=== PATIENT | female | born 1975 ===

== ENCOUNTER 2023-11-09 00:12 | Observation (INO) | payer MEDICARE, SELFPAY ==
[2023-11-08] VITALS (18 sets, daily range): BP systolic 107–155; BP diastolic 54–82; BMI 22.7
[2023-11-08 19:37] LABS: % Basophils 0.4 % (0-2); % Eosinophils 0.4 % (0-6); % Lymphocytes 20.2 % (20.5-51.1); % Monocytes 8.1 % (1.7-9.3); % Neutrophils 69.9 % (42.2-75.2); Absolute Eosinophils 0.1 10^3/uL (0-0.7); Absolute Immature Granulocytes 0.1 10^3/uL (0-0.05); Absolute Lymphocytes 2.3 10^3/uL (1.2-3.4); Absolute Monocytes 0.9 10^3/uL (0.1-0.6); Absolute Neutrophils 7.9 10^3/uL (1.4-6.5); Hematocrit 36.8 % (37.0-47.0); Hemoglobin 11.7 g/dL (12.0-16.0); Mean Corp Hgb Conc. 31.8 g/dL (33.0-37.0); Mean Corpuscular Hgb 22.8 pg (27.0-31.0); Mean Corpuscular Volume 71.6 fL (81.0-99.0); Mean Platelet Volume 8.7 fL (7.4-10.4); Nucleated Red Blood Cells % 0 %; Platelet Count 535 10^3/uL (130-400); Red Blood Cell Count 5.14 10^6/uL (4.20-5.40); Red Cell Dist. Width 18.4 % (11.5-14.5); White Blood Cell Count 11.3 10^3/uL (4.8-10.8)
[2023-11-08 19:48] LABS: INR 1.12; PT 14.2 Sec (11.4-14.6)
[2023-11-08 19:49] LABS: ALT (SGPT) 37 U/L (0-35); APTT 25.9 Sec (23.4-35.0); AST (SGOT) 30 U/L (14-36); Albumin 4.2 g/dl (3.5-5.0); Alkaline Phosphatase 42 U/L (38-126); Blood Urea Nitrogen 28 mg/dl (7-17); Carbon Dioxide 26 mmol/L (22-30); Chloride 102 mmol/L (98-107); Glucose 99 mg/dl (70-99); Potassium 4.1 mmol/L (3.5-5.1); Sodium 139 mmol/L (135-145); Total Bilirubin 0.3 mg/dl (0.2-1.3); Total Protein 6.7 g/dl (6.3-8.2); eGFR > 60.00
[2023-11-08] MEDS: NITROSTAT (SUBLINGUAL) 0.4 MG SL (19:52)
[2023-11-08] MEDS: LOW STRENGTH ASPIRIN 324 MG PO (19:52)
[2023-11-08 20:02] LABS: Troponin I < 0.012 ng/ml
--- NOTE | 2023-11-08 20:19 | ED.GENMED ---
History of Present Illness
General
Chief Complaint: Chest Pain
Time Seen by Provider: 11/08/23 19:10
History of Present Illness
History of Present Illness:
48-year-old female without significant past medical history presenting to the emergency department for left-sided chest pain. Patient reports 2 hours prior to arrival she was cooking dinner and had acute onset of left-sided chest tightness. Pain
has been worsening since arrival to the hospital. Denies any known cardiac history. Denies any difficulty breathing. Denies any family history of cardiac disease. Denies abdominal pain or GI symptoms. Notes some mild nausea. Denies any tobacco
use history. Denies additional acute medical complaints.
Past History
Past History
ED Past Medical History: Seizures
ED Past Surgical History: Brain
Social History
Tobacco: Non-smoker
Alcohol: None
Drug: None
Living: with family
Phy Exam
Physical Exam
Physical Exam:
General: Well-appearing, no clinical signs of dehydration, nontoxic and in no acute distress
HEENT: protecting airway
Neck: appears supple
CV: Normal heart rate, regular rhythm, no evidence of cyanosis
Resp: No accessory muscle use, no increased work of breathing, lungs clear to auscultation bilaterally
Abd: Soft and non-distended, no tenderness to palpation
Extremities: No deformities, no swelling, no erythema
Neuro: alert, no focal neurologic deficit
: deferred
Rectal: deferred
Psych: Normal affect
Skin: Intact
Scores
Heart Score for Chest Pain Patients
STEMI patient?: No
History: Moderately Suspicious
ECG: Significant ST-Depression
Age: >45 - <65 years
Risk Factors: No Risk Factors
Troponin: </= Normal Limit
Heart Score for Chest Pain Patients: 4
Heart Score Risk: 20.3% MACE over next 6 weeks
Course
Orders/Labs/Results
Orders:
Orders
11/08/23 18:52
EKG [Electrocardiogram (*1)] Urgent
Reason for Study: Chest Pain
EKG- Treatment ONCE
11/08/23 19:18
Aspirin Chewable [Low Strength Aspirin] 324 mg PO NOW STA
Nitroglycerin Sublingual [Nitrostat (Sublingual)] 0.4 mg SL NOW STA
11/08/23 19:19
CR Chest - 2 Views Urgent
Comment:
Reason For Exam: chest pain
11/08/23 19:29
Complete Blood Count/With Diff Urgent
Comprehensive Metabolic Panel Urgent
HCG, Serum Qualitative Screen Urgent
Comment: ADD ON
NT-proBNP Urgent
PTT Urgent
Prothrombin Time Urgent
Troponin I Q3H
11/08/23 21:37
CT Chest Pe Study Urgent
Comment:
Reason For Exam: chest pain
11/08/23 22:21
Add On- LAB Stat
Tests Added?: hcg qual
11/08/23 22:33
Troponin I Q3H
11/08/23 22:37
CARDIOLOGY CONSULT Routine
Consulting Provider: Tanner Wilson
Was physician already notified: Yes
Reason for consult: lbbb, chest pain
11/08/23 23:52
Urine Culture Reflexed from UA [Urinalysis Reflex To Culture] Routine
11/09/23 00:01
Admit/Transfer Patient As Directed
Co-Sign Provider:
Level of Care: Observation services
Assign to:: Telemetry
Physician / Group: tabatha quarles
Diagnosis: LBBB, Bradycardia chest pain
Reason for Telemetry: Arrhythmia
Date to Stop Telemetry: 11/12/23
Time to Stop Telemetry: 11:00
Code Status As Directed
Resuscitation Status: Full Code
11/09/23 00:04
PRN Pain Medication Management As Directed
May give lesser potent ordered pain med per pt: Yes
preference::
Protocol:: Medication orders for pain may be administered in a
manner that supports deferring to patient preference
when the pt is:
- Requesting an ordered lesser potent pain medication.
Least to most potent pain medications are defined
as: acetaminophen < NSAID < tramadol < opioids
(morphine, oxycodone, hydromorphone).
- Requesting a lesser dose of the same medication IF
ORDERED.
- Requesting a less intrusive route of administration
if both routes are prescribed by the provider (PO <
IV).
11/09/23 00:55
Acetaminophen [Tylenol] 650 mg PO Q4HPRN PRN
Nurtec ODT 75 mg PO ONCE PRN
Zofran ODT 8 mg PO Q8H PRN
11/09/23 00:55
Activity As Directed
Activity Level: As Tolerated
Vital Signs As Directed
Frequency: Per unit guidelines
DX Deep Vein Thrombosis Video Routine
11/09/23 05:00
Troponin I Routine
11/09/23 06:00
EKG [Electrocardiogram (*1)] IN AM
Reason for Study: Chest Pain
Other Reason for Exam: bradycardia
Cardiovascular Evaluation IN AM
Complete Blood Count/With Diff IN AM
Comprehensive Metabolic Panel IN AM
11/09/23 08:00
Aspir-81 81 mg PO DAILY
Keflex 500 mg PO TID
Klonopin 0.5 mg PO TID
Vyvanse 50 mg PO DAILY
atorvastatin 10 mg PO DAILY
11/09/23 Dinner
Regular
At Your Request: Limited Participation
11/09/23 18:00
Enoxaparin Sodium [Lovenox] 40 mg SC QPM
11/09/23 22:00
Flexeril 5 mg PO HS
eszopiclone [Lunesta] 3 mg PO HS
11/12/23 11:00
DC Protocol for Telemetry ONCE
Abnormal Lab Results
11/08/23
19:29
WBC 11.3 H 10^3/uL
(4.8-10.8)
Hgb 11.7 L g/dL
(12.0-16.0)
Hct 36.8 L %
(37.0-47.0)
MCV 71.6 L fL
(81.0-99.0)
MCH 22.8 L pg
(27.0-31.0)
MCHC 31.8 L g/dL
(33.0-37.0)
RDW 18.4 H %
(11.5-14.5)
Plt Count 535 H 10^3/uL
(130-400)
Abs Immat Gran (auto) 0.1 H 10^3/uL
(0-0.05)
Absolute Neuts (auto) 7.9 H 10^3/uL
(1.4-6.5)
Absolute Monos (auto) 0.9 H 10^3/uL
(0.1-0.6)
Immature Gran % 1.0 H %
(0-0.5)
Lymphocytes % 20.2 L %
(20.5-51.1)
BUN 28 H mg/dl
(7-17)
ALT 37 H U/L
(0-35)
11/08/23 19:29
11/08/23 19:29
Vital Signs
Initial and Last Documented VS:
Initial Vital Signs
Temp Pulse Resp BP Pulse Ox
97.7 F 56 16 155/82 98
11/08/23 18:59 11/08/23 18:59 11/08/23 18:59 11/08/23 18:59 11/08/23 18:59
Last Documented Vital Signs
Temp Pulse Resp BP Pulse Ox
97.7 F 54 16 138/70 99
11/09/23 01:18 11/09/23 01:18 11/09/23 01:18 11/09/23 01:18 11/09/23 01:18
MDM/Problems Addressed
MDM/Problems Addressed:
48-year-old female with no significant past medical history presenting for acute onset of chest pain. Vital signs on arrival significant for mild hypertension.
Patient had EKG upon arrival, abnormal with left bundle branch block with ST elevation, no reciprocal changes. No prior for comparison. Not meeting STEMI criteria, however abnormal and concerning. Patient in no acute distress. Overall
unremarkable examination, hemodynamically stable. Will consult with cardiology and obtain laboratory analysis including troponin.
19:30 - In discussion with Dr. Wilson, agrees abnormal, however no STEMI criteria. Pending troponin.
20:30 - Troponin with normal limits. Plan for admission for continued cardiac monitoring and troponin trending
*EKG
Interpreted by ED Provider?: Yes
EKG Intrepretation Date: 11/08/23
EKG Intrepretation Time: 20:25
Interpretation: abnormal
Comparison EKG: no comparison EKG present
Heart Rate: 57
Rate: bradycardiac
Rhythm: sinus
[place]: normal axis
Interval: normal interval
QRS Pattern: left bundle branch block
Ischemia: ST elevation
*Critical Care Note
Total Time (30-74mins, 75-104mins- exclusive of procedures): Not Applicable
ED Attending Note
-
Portions of this chart may have been created with voice recognition software.� Occasional wrong word or��sound alike� substitutions may have occurred due to the inherent limitations of voice recognition software.
Discharge Plan
Departure
Patient Disposition: Admit
Date of Disposition: 11/08/23
Time of Disposition: 20:28
Presentation/result/management discussed w/ accepting MD/DO: cardiology
Condition: Fair
Discharge Problem:
Chest pain, LBBB (left bundle branch block)
Interventions
Interventions:
*Risk Screen - Suicide Last Done: 11/08/23 18:59
*General Assessment Last Done: 11/09/23 01:00
*Neglect/Abuse Screening Last Done: 11/08/23 18:59
ED- Fall Risk Assessment Last Done: 11/08/23 19:57
*ED COVID-19 Vaccine History Last Done: 11/09/23 01:00
*Nursing Disposition Last Done: 11/09/23 01:00
ED- Cardiac Assessment Last Done: 11/08/23 19:57
Discharge Date and Time
Discharge Date/Time: 11/09/23 01:01
--- NOTE | 2023-11-08 21:05 | HPS.HSE ---
Family Physician
-
Family Physician: Kitty Aguilar
Chief Complaint
History of Present Illness
48-year-old female complaining of left-sided chest pain that started while she was cooking dinner.
Impression/plan:
Observation telemetry
#Chest pain with LBBB
-Consult [facility] cardiology Case was discussed with Dr. TIFFANY Wilson by ER provider-no acute STEMI
-Troponin <0.012, repeat troponin due at 2230
#History seizures
#History of brain tumor resection May 2020, July 2021
#Hx migraines
#Depression
DVT prophylaxis
Full code
Medical History
Allergies / Home Medications
Allergies reflects when Allergies were last updated in [facility].
Home Medications with original date entered in [facility]
Physical Exam
Vital Signs
Vital Signs
Temp Pulse Resp BP Pulse Ox
97.7 F 56 14 109/54 98
11/08/23 18:59 11/08/23 20:15 11/08/23 20:15 11/08/23 20:15 11/08/23 20:15
Laboratory Results
-
11/08/23 19:29
11/08/23 19:29
Laboratory Results
PT 14.2 Sec (11.4-14.6) 11/08/23 19:29
INR 1.12 11/08/23 19:29
APTT 25.9 Sec (23.4-35.0) 11/08/23 19:29
Total Bilirubin 0.3 mg/dl (0.2-1.3) 11/08/23 19:29
AST 30 U/L (14-36) 11/08/23 19:29
ALT 37 U/L (0-35) H 11/08/23 19:29
Alkaline Phosphatase 42 U/L (38-126) 11/08/23 19:29
Troponin I < 0.012 ng/ml 11/08/23 19:29
Impression/Plan
-
IMPRESSION:
PLAN:
--- NOTE | 2023-11-08 21:47 | HPS.HSE ---
Addendum entered and electronically signed by Richard Eugene DO 11/09/23 00:29:
Patient seen and examined independently. Agree with findings and plan as set forth by EMMA Yoon.
Patient is a 48y F with PMH significant for ADHD, anxiety / depression and migraine headaches who presents to ED complaining of chest pain / tightness. Symptoms started this evening while cooking. Patient describes inability to take a deep
breath. Denies any prior history of similar symptoms. Relevant history including abdominoplasty / liposuction done in July of this year. Was cleared only one week ago for return to exercise and notes that she has been lifting weights at least 54
minutes pr day since that time. Today did chest / arm exercises prior to onset of her current symptoms. Patient denies any fevers / chills, cough, palpitations.
She reports history of antiphospholipid antibody syndrome by genetic assay./ No personal history of VTE. Not on any OAC.
Patient also notes that she has been dealing with 'UTI symptoms' for about 7 weeks. Has taken multiple courses of abx without lasting improvement in her symptoms.
Ass:
Chest Pain
LBBB - ? new / chronic - no prior EKG to compare
Mild Bradycardia
Antiphospholipid Abs Syndrome
Anxiety / Depression
ADHD
Migraine Headaches
Seizure Disorder
Plan:
Observe overnight for further evaluation and treatment.
Troponin negative / undetectable x 2 sets thus far - doubt ACS.
Cardiology evaluation given LBBB, chest pain, etc.
CTA negative for PE or other acute abnormality.
? muscular discomfort due to weight lifting,
? viral syndrome / pleurisy.
Follow for any new / worsening symptoms.
Continue outpatient psychotropic medications.
Not on AEDs for quite some time per patient.
Given weeks-long issues with urinary symptoms and lack of response to abx - doubt infectious process.
If symptoms persist / recur, would recommend outpatient evaluation with Urology. ? IC, etc.
Original Note:
Family Physician
-
Family Physician: Kitty Aguilar
Chief Complaint
-
Left-sided chest pressure, dysuria, frequency, chills and fever 2 days ago 100.3 F
History of Present Illness
48-year-old female who states while cooking this evening she developed left-sided chest pressure which has been persistent. She also reports a sensation of not being able to take a deep breath. She denies any radiation or diaphoresis. She reports
she is status post liposuction 360 with elisabeth parker on July 31, 2023 she was just released 1 week ago to start working out. She reports that she is already worked out 4 times this past week including today. She was doing dumbbell weights 10 pounds
multiple reps along with seated chest presses 10 pounds. She denies chest pain with range of motion of arms. 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 She also reports history of antiphospholipid antibody disorder. She currently
follows with Dr. Huston cardiology in [facility] in [place] for which she takes propranolol ER 160 with additional 60 mg ER in a.m. for chronic tachycardia. She reports she has been treated for a urinary tract infection with E. coli since August
prior antibiotics is currently on Keflex 500 mg 3 times daily of which she is 2-1/2 days left of. She still reports frequency, dysuria and 100.3 fever as of 2 days ago. She denies cough, shortness of breath, abdominal pain, nausea, vomiting,
diarrhea.
She has past medical history of antiphospholipid antibody, migraines, brain meningioma left frontal, brain surgery hemifacial spasm repair Raymundo and right sided trigeminal neuralgia treatment, HLD, tachycardia, mitral valve prolapse, tricuspid
prolapse anxiety, insomnia, muscle spasms, ADHD, seizure disorder is only on as needed benzo nasal spray if needed
Medical History
Past Medical History
Past Medical History: Reports Other
Additional Past Medical History:
Antiphospholipid antibody positive
migraines
brain meningioma left frontal
brain surgery hemifacial spasm repair and neuralgia treatment
HLD
anxiety
insomnia
muscle spasms
ADHD
seizure disorder is only on as needed benzo nasal spray if needed
Vape nicotine use
Past Surgical History: Reports Other
Additional Past Surgical History:
Hemifacial spasm brain surgery
Neuralgia brain surgery
Liposuction 360 with 180 tummy tuck July 31, 2023
Social History
Tobacco: Vaping (Daily)
Alcohol: None
Drug: None
Personal:
Living: With Family
Family History
Family History: Other (Mother living history of hyperlipidemia, breast cancer, ovarian cancer, thyroid cancer, father living age 80 unsure medical problems)
Allergies / Home Medications
Allergies reflects when Allergies were last updated in [facility].
Home Medications with original date entered in [facility]
Allergy/Medication List:
Allergies
Allergy/AdvReac Type Severity Reaction Status Date / Time
ciprofloxacin [From Cipro] Allergy Unknown Verified 11/08/23 19:01
phenytoin [From Dilantin] Allergy Unknown Verified 11/08/23 19:01
MOST ANTI SEIZURE MEDS Allergy Unknown Uncoded 11/08/23 19:01
Home Medications
Aspir-81 81 mg PO DAILY 11/08/23
Cardizem CD 120 mg PO HS 11/08/23
Fioricet 1 tab PO BID 11/08/23
Flexeril 5 mg PO HS 11/08/23
Keflex 500 mg PO TID 11/08/23
Klonopin 0.5 mg PO TID 11/08/23
Nayzilam 5 mg intranasal ONCE PRN seizure 11/08/23
Nurtec ODT 75 mg PO ONCE PRN migraine 11/08/23
Vyvanse 50 mg PO DAILY 11/08/23
Zofran ODT 8 mg PO Q8H PRN nausea 11/08/23
atorvastatin 10 mg PO DAILY 11/08/23
eszopiclone 3 mg tablet (Lunesta) 3 mg PO HS 11/08/23
propranolol 60 mg PO DAILY 11/08/23
propranolol 160 mg PO DAILY 11/08/23
Review of Systems
-
History Source: Patient and Family
A 12 point ROS was completed and negative except as noted: Yes
Constitutional: Reports Fever (Reported 100.3 2 days ago) and Chills
EENT: Denies Sore Throat or Runny Nose
Respiratory: Denies Cough or Trouble Breathing
Cardiac: Reports Chest Pain (Left-sided chest); Denies Diaphoresis, Palpitations or Syncope
Abdomen/GI: Reports Other (Lower abdomen 180 tummy tuck scar present intact no surrounding cellulitis); Denies Abdominal Pain, Nausea, Vomiting, Diarrhea, Constipated or Bloody Stools
: Reports Dysuria and Frequency; Denies Flank Pain, Incontinence or Difficulty Voiding
Musculoskeletal: Denies Joint Pain or Edema
Skin: Denies Itching or Rash
Neurological: Denies Dizzy, Headache or Weakness
Endocrine: Reports No Symptoms
Hematologic/Lymphatic: Reports No Symptoms
Psych: Reports Calm
Physical Exam
Vital Signs
Vital Signs
Temp Pulse Resp BP Pulse Ox
97.7 F 52 15 112/64 99
11/08/23 18:59 11/08/23 21:15 11/08/23 21:15 11/08/23 21:15 11/08/23 21:15
Physical Exam
General: Pain (Left-sided chest) and Chills (On and off); No Fever
HEENT: NormoCephalic, Moist mucous membranes, PERRLA and [place] Conjunctivae
Respiratory: Clear; No Wheezes, Rales or Rhonchi
Cardiac: S1/S2 and Bradycardia; No Murmur, Rub, Gallop, Peripheral Edema, Calf Tenderness or Brandt's Sign
Breast: Deferred by me
GI: Soft, Non Tender, Non Distended, Normal Bowel Sounds and No Hepatosplenomegaly
Genito-urinary: Deferred by me
Musculoskeletal: No Clubbing, No Cyanosis and No Edema
Skin: Warm and Dry; No Rash
Neuro: AO x 3, No Motor Deficits, Nonfocal/grossly intact and No Sensory Deficits; No Facial Droop or Tremors
Psych: Calm
Laboratory Results
-
11/08/23:
11/08/23:
Laboratory Results
PT 14.2 Sec (11.4-14.6) 11/08/23
INR 1.12 11/08/23
APTT 25.9 Sec (23.4-35.0) 11/08/23
Total Bilirubin 0.3 mg/dl (0.2-1.3) 11/08/23
AST 30 U/L (14-36) 11/08/23
ALT 37 U/L (0-35) H 11/08/23
Alkaline Phosphatase 42 U/L (38-126) 11/08/23:
Troponin I < 0.012 ng/ml 11/08/23
Impression/Plan
-
Impression/plan:
Observation TELE
#Chest pain with LBBB
-Consult [facility] cardiology Dr. TIFFANY Wilson aware
-trop <0.012, repeat <0.012 will check 3rd Trop in am
-Continue [employer]UFA[employer]ING [employer] aspirin 81 mg daily
#Chest pain with dyspnea concern Pe vs Left muscular strain
#HX Antiphospholipid antibody positive
-Patient status post liposuction 360 tummy abrahamck July 31, 2023 and history antiphospholipid antibody positive
pt has not worked out for 12 weeks resumed working out 1 week ago 45 minutes a day all upper extremity only due to lower extremity restrictions from surgery
-Ct Pe Study NEG
#Bradycardia likely exacerbated by high-dose beta-blockers
-Hold propranolol 160 mg ER plus additional 60 mg ER in a.m.
-Patient follows with Dr. huston cardiology at [address] [place] [address]
-HOLD Cardizem CD 120 mg hs this was New medication added to her drug regimen
#Current E. coli UTI-symptomatic still with frequency, dysuria, chills, fever days ago
Has been treated for UTI since August this is third antibiotic urine culture grew E. coli per patient
-Patient is on Keflex 500 mg 3 times daily has 2.5 days left
-Repeat UA ,CANDY MIXER
#Hx mitral valve prolapse
#Hx tricuspid prolapse Dx 6 years ago
#HLD
-Continue Lipitor 10 mg daily
#Anxiety
-Continue Klonopin 0.5 mg 3 times daily
#Migraine history no current migraine
Takes as needed Nurtec ODT 75 mg once or Fioricet 1 tab p.o. twice daily
#Muscle spasms
-Continue Flexeril 5 mg at bedtime
#Insomnia
-Continue Lunesta 3 mg at bedtime
#History of seizures
-Patient reports is allergic to all seizure medications
Has rescue Nayzilam 5 mg intranasal as needed seizures
#Vape nicotine use
-Vapes multiple times during the day
-Cessation advised
Other PMH:
Brain meningioma left frontal
Brain surgery hemifacial spasm repair
Right trigeminal neuralgia treatment
DVT prophylaxis
sq lovenox if Ct neg for PE
Full code
[2023-11-08 22:56] LABS: HCG, Serum Qualitative Screen Negative
[2023-11-08 23:01] LABS: Troponin I < 0.012 ng/ml
[2023-11-09] VITALS (9 sets, daily range): BP systolic 111–138; BP diastolic 56–71; BMI 23.0
--- NOTE | 2023-11-09 01:30 | PTCARENOTE ---
Pt transferred from ED. Pt AAOX3, able to make needs known, VSS. Pt has 9/10 pain in L side chest, EMMA Kidd notified.
[2023-11-09] MEDS: TYLENOL 1000 MG PO (02:10)
[2023-11-09] MEDS: FLEXERIL 5 MG PO (02:12)
[2023-11-09] MEDS: AMBIEN 5 MG PO (03:15)
[2023-11-09] MEDS: COMPAZINE 5 MG IV (03:15)
--- NOTE | 2023-11-09 03:31 | PTCARENOTE ---
Pt states she is in pain and wants her night time medications. Pt given one time Tylenol and Flexeril. Pt states 'This does nothing for me, I want pain medicine or a sleeping pill, this is ridiculous I will find a way to take my home medications if
needed'. Pt states 'I am just thrown into this bed to suffer'. Urmila CARTER notified. New orders obtained. Will continue with current plan.
[2023-11-09 06:43] LABS: % Basophils 0.2 % (0-2); % Eosinophils 0.4 % (0-6); % Immature Granulocytes 0.7 % (0-0.5); % Lymphocytes 24.7 % (20.5-51.1); % Monocytes 10.7 % (1.7-9.3); % Neutrophils 63.3 % (42.2-75.2); Absolute Immature Granulocytes 0.1 10^3/uL (0-0.05); Absolute Lymphocytes 2.2 10^3/uL (1.2-3.4); Absolute Neutrophils 5.7 10^3/uL (1.4-6.5); Hemoglobin 11.6 g/dL (12.0-16.0); Mean Corp Hgb Conc. 31.4 g/dL (33.0-37.0); Mean Corpuscular Hgb 23.1 pg (27.0-31.0); Mean Corpuscular Volume 73.7 fL (81.0-99.0); Mean Platelet Volume 9.1 fL (7.4-10.4); Nucleated Red Blood Cells % 0 %; Platelet Count 470 10^3/uL (130-400); Red Blood Cell Count 5.02 10^6/uL (4.20-5.40); Red Cell Dist. Width 18.2 % (11.5-14.5)
[2023-11-09 07:07] LABS: Troponin I < 0.012 ng/ml
[2023-11-09 07:12] LABS: ALT (SGPT) 34 U/L (0-35); AST (SGOT) 26 U/L (14-36); Albumin 3.8 g/dl (3.5-5.0); Alkaline Phosphatase 40 U/L (38-126); Blood Urea Nitrogen 20 mg/dl (7-17); Calcium 9.6 mg/dl (8.4-10.2); Carbon Dioxide 29 mmol/L (22-30); Chloride 103 mmol/L (98-107); Estimated Creatinine Clearance 69 ml/min; Glucose 99 mg/dl (70-99); HDL Cholesterol 37 mg/dl; LDL Cholesterol, Calculated 134 mg/dl; Potassium 4.4 mmol/L (3.5-5.1); Sodium 140 mmol/L (135-145); Total Bilirubin 0.3 mg/dl (0.2-1.3); Total Cholesterol 188 mg/dl (50-199); Total Protein 6.1 g/dl (6.3-8.2); Triglyceride 87 mg/dl (10-149); Very Low Density Lipoprotein 17 mg/dl (0-30); eGFR > 60.00
--- NOTE | 2023-11-09 07:29 | CON.CAR ---
Consultation
Consultation Request
Date/Time Consultation Requested: 11/08/2023 and 2129
Date/Time Consultation Performed: at 730
Requesting Provider: Dr. Eugene
Performing Provider: Dr. Tanner Wilson
Reason for Consultation: Chest discomfort
Medical History
-
Chief Complaint: Chest discomfort
History of Present Illness:
48-year-old woman, ADHD/anxiety/hypertension and migraines with chest tightness, difficulty with deep breathing. She has been followed by security public safety officer at 110. He has been having episodes of tachycardia. She thinks she may have had a Holter few
weeks ago. Last stress test was a long time ago. She has been told that she has some abnormality on her electrocardiogram but is uncertain regarding this. She developed symptoms of chest tightness that were not clearly exertional not worse with
deep breathing or positional changes. She has been struggling with the recent UTIs and currently is getting treated for UTI with ongoing dysuria. She has not had a recent respiratory infection. Chest symptoms are not worse lying down. She states
her heart rate is gone up to 280. She was placed on long-acting propranolol. Diltiazem was added. She says she has 'brain damage' as a result of her neurosurgical procedures. She has not had intervention on her left meningioma. It is unclear
when this was last imaged. Upon presentation to the ER she was found to have left bundle branch block with negative troponin. It is unclear whether her left bundle is new although it sounds as if it may have been present. She had been exercising,
had not been exercising over the last 10 weeks or so and recently resumed. However she does not feel current symptoms are musculoskeletal. She has GERD but does not feel her symptoms relate to GERD
Past Medical History
Past Medical History: GERD, Hypercholesterolemia, Seizures, Valvular Disease (Mitral valve prolapse), Psychiatric (Anxiety/depression/ADHD/insomnia) and Other (Migraine headaches, antiphospholipid syndrome, left frontal meningioma)
Past Surgical History: Other (Vascular decompression for trigeminal neuralgia)
Social History
Tobacco: Vaping
Alcohol: None
Drug: None
Personal: Partner (She has adult children)
Living: With Family
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
Family History
Family History: Reviewed & Not Pertinent
Allergies / Home Medications
Allergy/AdvReac Type Severity Reaction Status Date / Time
ciprofloxacin [From Cipro] Allergy Unknown Verified 11/08/23 19:01
phenytoin [From Dilantin] Allergy Unknown Verified 11/08/23 19:01
MOST ANTI SEIZURE MEDS Allergy Unknown Uncoded 11/08/23 19:01
�Medication �Instructions �Recorded �Confirmed �Type
Aspir-81 81 mg PO DAILY 11/08/23 11/08/23 History
Cardizem CD 120 mg PO HS 11/08/23 11/08/23 History
Fioricet 1 tab PO BID 11/08/23 11/08/23 History
Flexeril 5 mg PO HS 11/08/23 11/08/23 History
Keflex 500 mg PO TID 11/08/23 11/08/23 History
Klonopin 0.5 mg PO TID 11/08/23 11/08/23 History
Nayzilam 5 mg intranasal ONCE PRN seizure 11/08/23 11/08/23 History
Nurtec ODT 75 mg PO ONCE PRN migraine 11/08/23 11/08/23 History
Vyvanse 50 mg PO DAILY 11/08/23 11/08/23 History
Zofran ODT 8 mg PO Q8H PRN nausea 11/08/23 11/08/23 History
atorvastatin 10 mg PO DAILY 11/08/23 11/08/23 History
eszopiclone 3 mg tablet (Lunesta) 3 mg PO HS 11/08/23 11/08/23 History
propranolol 60 mg PO DAILY 11/08/23 11/08/23 History
propranolol 160 mg PO DAILY 11/08/23 11/08/23 History
Review of Systems
-
All other systems: Negative unless noted
: Dysuria
Physical Exam
Vital Signs
Temp Pulse Resp BP Pulse Ox
36.8 C 70 16 113/71 100
11/09/23 07:00 11/09/23 07:00 11/09/23 07:00 11/09/23 07:00 11/09/23 07:00
Lab Results
11/09/23 06:30
11/09/23 06:30
Troponin I < 0.012 ng/ml 11/09/23 06:30
Ine-R-Sycbtxmutvl Pept 91.0 pg/ml 11/08/23 19:29
Physical Exam
General: No Apparent Distress (Flat affect)
HEENT: Normocephalic (Minimal facial asymmetry)
Respiratory: Clear
Cardiac: Murmur (Systolic murmur, probable midsystolic click)
Breast: Deferred by me
Musculoskeletal: No Edema
Skin: Warm and Dry
Neuro: AO x 3
Psych: Calm
Impression / Plan
-
Impression:
Chest pain, suspect noncardiac
Left bundle branch block, duration unknown
History of mitral valve prolapse
Antiphospholipid antibody
Anxiety/depression/ADHD/insomnia
Migraines
History of seizures
History of meningioma
History of trigeminal neuralgia
Hyperlipidemia
Recent abdominoplasty
Recurrent UTI
Vaping
Plan:
She presents with chest pain that is likely noncardiac given negative troponins. It is unclear whether her left bundle branch block is new or old, I suspect the latter. On exam she has a click and a murmur so probably does have mitral
regurgitation but this does not sound severe.
The cause of her chest pain is not clear. It does not sound like reflux. She does not feel that it is musculoskeletal.
She is currently bradycardic, she is on high-dose propranolol and has been on diltiazem for what sounds like it could have been an SVT. We will need to review her old records.
She wishes to transfer care to the [facility].
I discussed keeping her overnight and performing an echo and sestamibi study in the morning. I told her that I felt her evaluation was reassuring that if she wished she could pursue a workup as outpatient. She would prefer to go home today.
Will arrange for an outpatient Lexiscan sestamibi study, an echo and a 1 week Bard[facility] CAM. Thereafter she can follow-up to our office.
She is iron deficient, will defer to hospitalist regarding best management.
I would stop her diltiazem present given her bradycardia.
Decrease propranolol LA to 160 mg daily. Consider alternative beta-blockers.
Recommended cardiac medications at discharge:
Aspirin 81 mg daily for now
Atorvastatin 10 mg daily
Propranolol LA 160 mg daily
Discussed at length with patient and significant other morning.
Data Reviewed
-
EKG: Tracing Personally Visualized and interpreted (Normal sinus rhythm, left bundle branch block)
Radiology: Image Personally Visualized and interpreted
CT Scan: Image Personally Visualized and interpreted
Labs: Labs Reviewed by me (Hemoglobin 11.6, platelets 470, monocytosis, Trope undetectable x 2, LDL is 134)
[2023-11-09 07:31] LABS: Iron 21 ug/dl (37-170)
[2023-11-09 07:40] LABS: Percent Saturation 5 % (20-50); Total Iron Binding Capacity 367 ug/dl (265-497)
[2023-11-09 08:11] LABS: COVID-19 Antigen Negative (Negative)
[2023-11-09] MEDS: KLONOPIN 0.5 MG PO ×2 (08:17→17:00)
[2023-11-09] MEDS: KEFLEX 500 MG PO ×2 (08:17→17:00)
[2023-11-09] MEDS: ASPIR LOW (ENTERIC COATED) 81 MG PO (08:18)
[2023-11-09] MEDS: TYLENOL 650 MG PO (08:26)
--- NOTE | 2023-11-09 10:30 | W.PN.HOSP.TC ---
Today's Communication/Plan
-
CT abd
UA
bronchodilators
Assessment / Plan
Assessment / Plan
48yo F with tachycardia syndrome, Hx of meningioma, seizure d/o, HLD, anxiety, ADHD, migraines came with feeling generally unwell with chest tightness and low HR at home. Patient is fighting UTI for the past 7 weeks and currently on cefalexin for
E.coli started by her PCP, however still feeling dysuria.
A/P:
#Chest tightness, can be 2/2 emphysematous changes
#LBBB
Chest CT neg for PE
Bronchodilators
trops neg
Would like to transfer care to [place].
Cardiology consult: offered Echo and stress, can be done as outpatient as patient requested
adjust meds: stop Diltiazem, decrease propranolol to 160mg
#LUZ ELENA
#Hx of meningioma
#Migraines
no new neurologic deficit
ferrous sulfate and follow with PCP and previously established specialists
#Recent UTI and acute upper respiratory infection
Poor responce to Keflex with R CV tensderness - CT scan since high suspiscion for pyelo
repeat UA
#Anxiety
#ADHD
cont home meds
DVT ppx lovenox
Full code
I have spent at least 58min rewieving chart, test results, communication with consultants and direct patient care
Anticipated Discharge: Within 24 hours
Subjective/Interval History
-
Date of Service: November 09, 2023
Objective Data
-
Labs:
Laboratory Results
11/09/23
06:30
WBC 9.0
Hgb 11.6 L
Hct 37.0
Plt Count 470 H
Sodium 140
Potassium 4.4
Chloride 103
Carbon Dioxide 29
BUN 20 H
Creatinine 0.9
Glucose 99
Calcium 9.6
Total Bilirubin 0.3
AST 26
ALT 34
Alkaline Phosphatase 40
Vital Signs:
Vital Signs
Temp Pulse Resp BP Pulse Ox
98.2 F 70 16 113/71 100
11/09/23 07:00 11/09/23 07:00 11/09/23 07:00 11/09/23 07:00 11/09/23 07:00
I&O
11/08/23 11/09/23 11/10/23
06:59 06:59 06:59
Intake Total 240 / 240
Balance 240 / 240
Review of Systems
-
History Source: Patient
All other systems: Reviewed and negative
Constitutional: Reports Fatigue
Cardiac: Reports Other (chest pressure)
Genitourinary: Reports Dysuria
Physical Exam
-
General: No Apparent Distress
HEENT: Normocephalic
Respiratory: Negative Wheezes
Cardiac: Regular Rhythm
GI: Soft, Nontender and Nondistended
Genito-urinary: Costovertebral Angle Tend (on R)
Musculoskeletal: No Clubbing, No Cyanosis and No Edema
Skin: Warm
Neuro: Awake, Alert, Oriented and AO x 3
Psych: Calm
[2023-11-09 11:06] LABS: Urine Albumin Negative (Neg - Trace); Urine Bilirubin Negative (Negative); Urine Character Clear (Clear); Urine Color Yellow; Urine Glucose Negative (Negative); Urine Ketone Negative (Negative); Urine Leukocyte Negative (Negative); Urine Nitrite Negative (Negative); Urine Occult Blood Negative (Negative); Urine Specific Gravity 1.005 (<1.030); Urine Urobilinogen Negative (Neg - 1+)
[2023-11-09] MEDS: ProAIR HFA INHALER 2 PUFF INH (11:33)
[2023-11-09] MEDS: NSS 250 IV (11:49)
--- NOTE | 2023-11-09 13:04 | W.DCSUMMARY ---
Discharge Summary
Discharge Data
Date of Admission: 11/09/23
Date of Discharge: 11/09/23
-
Pending Results: Yes
Additional Pending Results:
TSH
Hospital Course
48yo F with tachycardia syndrome, Hx of meningioma, seizure d/o, HLD, anxiety, ADHD, migraines came with feeling generally unwell with chest tightness and low HR at home. Patient is fighting UTI for the past 7 weeks and currently on cefalexin for
E.coli started by her PCP, however still feeling dysuria. UA not concerning for infection, CT abd/pelvis without signs of pyelonephritis. Medically stable for d/c and to continue outpatient follow up with inspector floor sub assembly.
I have spent at least 39min reviewing chart, test results, communication with consultants and direct patient care
A/P:
#Chest tightness, can be 2/2 emphysematous changes (patint is vaping)
#LBBB
#LUZ ELENA
#Hx of meningioma
#Migraines
#Recent UTI and acute upper respiratory infection
#Anxiety
#ADHD
Discharge Plan
-
Patient Disposition: Home (Routine Discharge)
Discharge Diagnosis/Procedures: Chest tightness
Diet: Regular
Activity: No restrictions
Driving Restrictions: As prior to admission
Activity Restrictions/Additional Instructions:
Use over the counter laxatives or stool softners for constipation
Referrals:
Kitty Aguilar MD [Family Provider] - (For iron deficiency anemia)
Jorge Luis Odom MD [Active] - in four to six weeks (For Emphysema)
Tanner Wilson MD [Active] - in one to two weeks
Prescriptions:
New
ferrous sulfate [FeroSul] 325 mg (65 mg iron) Tablet
325 mg PO DAILY Qty: 30 0RF
albuterol sulfate 90 mcg/actuation Hfa Aerosol Inhaler
2 puff inhalation R Q4HPRN PRN (Reason: SOB, chest tightness) Qty: 2 0RF
Continued
Aspir-81
81 mg PO DAILY
eszopiclone [Lunesta] 3 mg Tablet
3 mg PO HS
Fioricet
1 tab PO BID
Patient Comments:
fiorcet 50mg/325mg/40mg
Flexeril
5 mg PO HS
Klonopin
0.5 mg PO TID
Nayzilam
5 mg intranasal ONCE PRN (Reason: seizure )
Nurtec ODT
75 mg PO ONCE PRN (Reason: migraine)
Vyvanse
50 mg PO DAILY
Zofran ODT
8 mg PO Q8H PRN (Reason: nausea )
atorvastatin
10 mg PO DAILY
propranolol
60 mg PO DAILY
propranolol
160 mg PO DAILY
Rx Instructions:
takes Er 160 mg with additional 60 mg in am
Keflex
500 mg PO TID
Rx Instructions:
being treated for ecoli uti since august . Has 2.5 days left of this medication
Cardizem CD
120 mg PO HS
Discharge Orders:
Discharge Patient (As Directed); Ordered 11/09/23
Ordered By: Zeke Fernández
Discharge Date and Time
Print Language: IRISH
[2023-11-09] MEDS: FERRLECIT 110 MG IV (13:39)
--- NOTE | 2023-11-09 15:40 | CM ---
Patient seen bedside with significant other, initial assessment completed. Patient resides with boyfriend in multiple story home, three steps to enter. Patient denies use of DME, VN, or SNF history. Patient confirms PCP Kitty Aguilar, pharmacy [facility], confirms prescription coverage. Patient denies needs, reports she is discharging home today. MONTE reviewed, refused to sign, placed in chart. CM will continue to follow for all discharge planning needs.
Plan; home no needs.
[2023-11-09] MEDS: LOVENOX 40 MG SC (17:00)
[2023-11-09 20:48] LABS: TSH Reflex To Free T4 1.06 uIU/ml (0.47-4.68)
[2023-11-10 15:06] LABS: Ferritin 7.7 ng/ml (6.24-137)
== END 2023-11-09 17:50 | disposition home or self-care (01) ==
LOC: 4 WEST ACU 00:12
PROVIDERS: Clinical Nurse Specialist Family Health; ADMITTING PHYSICIAN Hospitalist; ATTENDING PHYSICIAN Internal Medicine; CONSULT PHYSICIAN Internal Medicine Cardiovascular Disease; EMERGENCY PHYSICIAN Student in an Organized Health Care Education/Training Program; FAMILY PHYSICIAN Family Medicine
DX: R07.89 Other chest pain (principal); R11.0 Nausea; I44.7 Left bundle-branch block, unspecified; R00.1 Bradycardia, unspecified; J43.9 Emphysema, unspecified; R30.0 Dysuria; I10 Essential (primary) hypertension; F90.9 Attention-deficit hyperactivity disorder, unspecified type; F41.9 Anxiety disorder, unspecified; F32.A Depression, unspecified; G43.909 Migraine, unspecified, not intractable, without status migrainosus; D68.61 Antiphospholipid syndrome; G40.909 Epilepsy, unspecified, not intractable, without status epilepticus; G50.0 Trigeminal neuralgia; D32.0 Benign neoplasm of cerebral meninges; K21.9 Gastro-esophageal reflux disease without esophagitis; E78.00 Pure hypercholesterolemia, unspecified; E61.1 Iron deficiency; I34.1 Nonrheumatic mitral (valve) prolapse; G47.00 Insomnia, unspecified; R53.1 Weakness; J98.11 Atelectasis; I49.8 Other specified cardiac arrhythmias; M62.838 Other muscle spasm; F17.290 Nicotine dependence, other tobacco product, uncomplicated; Z88.1 Allergy status to other antibiotic agents; Z88.8 Allergy status to other drugs, medicaments and biological substances; Z83.49 Family history of other endocrine, nutritional and metabolic diseases; Z80.3 Family history of malignant neoplasm of breast; Z80.41 Family history of malignant neoplasm of ovary; Z80.8 Family history of malignant neoplasm of other organs or systems; Z87.440 Personal history of urinary (tract) infections; Z11.52 Encounter for screening for COVID-19
CPT/HCPCS: 71046; 71275; 74177; 80053; 80061; 81003; 82728; 83540; 83550; 83880; 84443; 84484; 84703; 85025; 85610; 85730; 87502; 87811; 93005; 94640; 99285; G0378; J2916; Q9967

== ENCOUNTER 2023-11-14 14:08 | Inpatient (IN) | payer MEDICARE, BC, SELFPAY ==
[2023-11-13 22:15] VITALS: BP 118/78
[2023-11-13 22:51] LABS: % Basophils 0.4 % (0-2); % Eosinophils 0.4 % (0-6); % Immature Granulocytes 0.6 % (0-0.5); % Lymphocytes 18.6 % (20.5-51.1); % Monocytes 7.3 % (1.7-9.3); % Neutrophils 72.7 % (42.2-75.2); Absolute Basophils 0.1 10^3/uL (0-0.2); Absolute Eosinophils 0.1 10^3/uL (0-0.7); Absolute Immature Granulocytes 0.1 10^3/uL (0-0.05); Absolute Lymphocytes 2.1 10^3/uL (1.2-3.4); Absolute Monocytes 0.8 10^3/uL (0.1-0.6); Absolute Neutrophils 8.1 10^3/uL (1.4-6.5); Hematocrit 37.5 % (37.0-47.0); Hemoglobin 11.7 g/dL (12.0-16.0); Mean Corp Hgb Conc. 31.2 g/dL (33.0-37.0); Mean Corpuscular Hgb 22.9 pg (27.0-31.0); Mean Corpuscular Volume 73.2 fL (81.0-99.0); Nucleated Red Blood Cells % 0 %; Platelet Count 450 10^3/uL (130-400); Red Blood Cell Count 5.12 10^6/uL (4.20-5.40); Red Cell Dist. Width 19.9 % (11.5-14.5); White Blood Cell Count 11.2 10^3/uL (4.8-10.8)
[2023-11-13 22:57] LABS: ALT (SGPT) 32 U/L (0-35); AST (SGOT) 31 U/L (14-36); Albumin 4.4 g/dl (3.5-5.0); Alkaline Phosphatase 39 U/L (38-126); Blood Urea Nitrogen 23 mg/dl (7-17); Calcium 9.9 mg/dl (8.4-10.2); Carbon Dioxide 27 mmol/L (22-30); Chloride 100 mmol/L (98-107); Glucose 114 mg/dl (70-99); Sodium 138 mmol/L (135-145); Total Bilirubin 0.3 mg/dl (0.2-1.3); Total Protein 6.8 g/dl (6.3-8.2); eGFR > 60.00
[2023-11-13 23:01] LABS: HCG, Serum Qualitative Screen Negative
[2023-11-13 23:09] LABS: Troponin I < 0.012 ng/ml
--- NOTE | 2023-11-13 23:16 | ED.GENMED ---
History of Present Illness
General
Chief Complaint: Chest Pain
Source: patient
Exam Limitations: none
Time Seen by Provider: 11/13/23 22:53
History of Present Illness
History of Present Illness:
This is a 48 year old female that comes in with c/o bradycardia and tachycardia. States that she was here on Friday with the same thing and they found that she had a LBBB. States that she was sent home with follow up. Patient is now wearing a
Holter monitor. States that her symptoms are getting worse. States that she was tachycardic today at 174 and then she would drop to 48. States that she was put on Propranolol 160mg which she took in the morning but has not been able to take her
night time medication as her heart rate is 60. States that she did see her cheese maker on Friday. States that she has chest tightness and that she is SOB like someone sitting on her chest.
Past History
Past History
ED Past Medical History: Seizures
ED Past Surgical History: Brain
Social History
Tobacco: Non-smoker
Alcohol: None
Drug: None
Living: with family
Review of Systems
Review of Systems
All Other Systems: ROS reviewed and negative except as documented in HPI and ROS
Constitutional: Reports other (Sweats and then chills)
EENT: Reports no symptoms
Respiratory: Reports trouble breathing
Cardiac: Reports other (Tachycardia/Bradycardia)
ABD/GI: Reports vomiting and diarrhea; Denies abdominal pain or nausea
: Reports no symptoms; Denies dysuria, frequency or urgency
Musculoskeletal: Reports no symptoms
Skin: Reports no symptoms
Neurological: Reports headache and other (Lightheaded)
Psychiatric: Reports no symptoms
Phy Exam
General Physical Exam
General Presentation: no apparent distress
General age: appears stated age
General Skin: warm and dry
General Habitus: normal
General Mental: alert
General Hydration: appears well hydrated
ENT Exam
ENT Exam: TM's normal, pharynx normal and neck supple
Eye Exam
Eye Exam: EOMI
Cardiovascular Exam
Cardiovascular Exam: no edema, normal peripheral pulses and bradycardia
Pulmonary Exam
Pulmonary Exam: lungs clear, no respiratory distress, no rales, chest non tender, no crackles, no rhonchi, no wheezing and no cough
Gastrointestinal Exam
Gastrointestinal Exam: normal bowel sounds, non tender, soft, no organomegaly, no pulsatile mass and non distended
Musculoskeletal Exam
Musculoskeletal Exam: full ROM and no edema
Skin Exam
Skin Exam: normal color, warm/dry, no rash and no petechia
Psychiatric Exam
Psychiatric Exam: normal mood/affect
Scores
Heart Score for Chest Pain Patients
STEMI patient?: No
History: Slightly or Non-Suspicious
ECG: Normal
Age: >45 - <65 years
Risk Factors: No Risk Factors
Troponin: </= Normal Limit
Heart Score for Chest Pain Patients: 1
Heart Score Risk: 2.5% MACE over next 6 weeks
Course
Orders/Labs/Results
Orders:
Orders
11/13/23 22:12
Electrocardiogram (*1) Urgent
Reason for Study: Chest Pain
EKG- Treatment ONCE
11/13/23 22:14
Test Result ONCE
11/13/23 22:30
Complete Blood Count/With Diff Urgent
Comprehensive Metabolic Panel Urgent
HCG, Serum Qualitative Screen Urgent
Troponin I Urgent
Abnormal Lab Results
11/13/23
22:30
WBC 11.2 H 10^3/uL
(4.8-10.8)
Hgb 11.7 L g/dL
(12.0-16.0)
MCV 73.2 L fL
(81.0-99.0)
MCH 22.9 L pg
(27.0-31.0)
MCHC 31.2 L g/dL
(33.0-37.0)
RDW 19.9 H %
(11.5-14.5)
Plt Count 450 H 10^3/uL
(130-400)
Abs Immat Gran (auto) 0.1 H 10^3/uL
(0-0.05)
Absolute Neuts (auto) 8.1 H 10^3/uL
(1.4-6.5)
Absolute Monos (auto) 0.8 H 10^3/uL
(0.1-0.6)
Immature Gran % 0.6 H %
(0-0.5)
Lymphocytes % 18.6 L %
(20.5-51.1)
BUN 23 H mg/dl
(7-17)
Glucose 114 H mg/dl
(70-99)
11/13/23 22:30
11/13/23 22:30
Slight Leukocytosis, Hgb slightly low. Anemic, Dehydration. Hyperglycemia. Troponin <0.012, HCG negative.
Vital Signs
Initial and Last Documented VS:
Initial Vital Signs
Temp Pulse Resp BP Pulse Ox
97.7 F 55 18 118/78 99
11/13/23 22:15 11/13/23 22:15 11/13/23 22:15 11/13/23 22:15 11/13/23 22:15
Last Documented Vital Signs
Temp Pulse Resp BP Pulse Ox
97.7 F 55 18 118/78 99
11/13/23 22:15 11/13/23 22:15 11/13/23 22:15 11/13/23 22:15 11/13/23 22:15
Merchandise Marker consulted with Physician
Merchandise Marker consulted with physician?: Yes
Name of Physician Consulted: Dr. Ferrell
MDM/Problems Addressed
Differential Diagnosis Includes:
Tachycardia/ Bradycardia arrhythmia's
MDM/Problems Addressed:
This is a 48 year old female that comes in with c/o tachycardia and bradycardia. States that she was here on Friday and was discharged she was going to follow up with her cheese maker. He was unable to see patient. Patient was place on Propranolol
160mg but is unable to take this if her heart rate is <60. States that today she has been between 48/174. States that she has sweats and then chills. States that she is SOB and feels like someone is sitting on her chest due to the tightness.
Will get labs. Monitor shows heart rate of 46. Will admit patient for further cardiac work up. Hospitalist notified.
Chronic conditions affecting care:
NA
Acute Exacerbation and/or Progression of Chronic Illness:
NA
*Pulse Oximetry
Patient hypoxic: no
*EKG
Interpreted by ED Provider?: Yes
Heart Rate: 54
Rate: bradycardiac
Rhythm: sinus
[place]: normal axis
Interval: normal interval
QRS Pattern: normal QRS
Ischemia: T-wave inversion
*Advertising Coordinator Interpretation
Rate: bradycardiac
Heart Rate: 46
Rhythm: sinus
*Critical Care Note
Total Time (30-74mins, 75-104mins- exclusive of procedures): Not Applicable
ED Attending Note
-
Portions of this chart may have been created with voice recognition software.� Occasional wrong word or��sound alike� substitutions may have occurred due to the inherent limitations of voice recognition software.
Discharge Plan
Departure
Patient Disposition: Admit
Date of Disposition: 11/14/23
Time of Disposition: 00:02
Admit to: Telemetry
Presentation/result/management discussed w/ accepting MD/DO: Hospitalist
Patient with high blood pressure during this ER visit?: No
Condition: Good
Covid-19: Not Applicable
Discharge Problem:
Sinus bradycardia-tachycardia syndrome
Prescriptions:
No Action
Aspir-81
81 mg PO DAILY
eszopiclone [Lunesta] 3 mg Tablet
3 mg PO HS
Fioricet
1 tab PO BID
Patient Comments:
fiorcet 50mg/325mg/40mg
Flexeril
5 mg PO HS
Klonopin
0.5 mg PO TID
Nayzilam
5 mg intranasal ONCE PRN (Reason: seizure )
Nurtec ODT
75 mg PO ONCE PRN (Reason: migraine)
Vyvanse
50 mg PO DAILY
Zofran ODT
8 mg PO Q8H PRN (Reason: nausea )
atorvastatin
10 mg PO DAILY
propranolol
160 mg PO DAILY
Rx Instructions:
takes Er 160 mg with additional 60 mg in am
Keflex
500 mg PO TID
Rx Instructions:
being treated for ecoli uti since august . Has 2.5 days left of this medication
ferrous sulfate [FeroSul] 325 mg (65 mg iron) Tablet
325 mg PO DAILY Qty: 30 0RF
albuterol sulfate 90 mcg/actuation Hfa Aerosol Inhaler
2 puff inhalation R Q4HPRN PRN (Reason: SOB, chest tightness) Qty: 2 0RF
Referrals:
Kitty Aguilar MD [Family Provider] -
Interventions
Interventions:
*Risk Screen - Suicide Last Done: 11/13/23 22:15
*General Assessment Last Done: 11/13/23 22:15
*Neglect/Abuse Screening Last Done: 11/13/23 22:15
Discharge Date and Time
Print Language: [place]
[2023-11-13 23:19] VITALS: BMI 23.8
[2023-11-14] VITALS (7 sets, daily range): BP systolic 111–132; BP diastolic 62–81; BMI 22.5
--- NOTE | 2023-11-14 00:52 | HPS.HSE ---
Family Physician
-
Family Physician: Kitty Aguilar
Chief Complaint
-
Tachycardia and bradycardia
History of Present Illness
Patient is a 48-year-old female ADHD, anxiety / depression and migraine headaches who presents to ED complaining of recurrent episodes of chest tightness and tachycardia.
Patient was seen in the ED approximately 3 days ago with similar symptoms of chest tightness and tachycardia as well as episodes of bradycardia. Due to tachycardia she had extensive workup which was negative for acute PE. With possibly left bundle
branch block with the patient was initiated on a cardiac workup but did not complete the workup. She has a pending echo and sestamibi by cardiology. She had some changes in her medications with reduction of propranolol to 160 daily and Cardizem
120 at bedtime.
Patient reported that today she noticed that her blood pressure pulse rate went was low as 48. It also went to her high as 170. She reported that when tachycardic she had this chest tightness again. She denies any nausea vomiting or diaphoresis.
In the ED she was hemodynamically stable with pulse rate in the 50s mostly. ECG shows sinus bradycardia [address] or T wave changes. There was no left bundle on current ECG. CBC is essentially unchanged from prior. Electrolytes
BUN/creatinine were within normal limits. As stated above she had a prior CT PE which was negative. Chest x-ray is clear. TSH is within normal limits.
Medical History
Past Medical History
Past Medical History: Reports Other
Additional Past Medical History:
Antiphospholipid antibody positive
migraines
brain meningioma left frontal
brain surgery hemifacial spasm repair and neuralgia treatment
HLD
anxiety
insomnia
muscle spasms
ADHD
seizure disorder is only on as needed benzo nasal spray if needed
Vape nicotine use
Past Surgical History: Reports Other
Additional Past Surgical History:
Hemifacial spasm brain surgery
Neuralgia brain surgery
Liposuction 360 with 180 tummy tuck July 31, 2023
Past Surgical History: Reports Other
Social History
Tobacco: Vaping
Alcohol: None
Drug: None
Personal:
Living: With Family
Employment: Not Employed
Family History
Family History: Cancer (breast ca, ovarian ca)
Allergies / Home Medications
Allergies reflects when Allergies were last updated in [facility].
Home Medications with original date entered in [facility]
Allergy/Medication List:
Allergies
Allergy/AdvReac Type Severity Reaction Status Date / Time
ciprofloxacin [From Cipro] Allergy Unknown Verified 11/08/23 19:01
phenytoin [From Dilantin] Allergy Unknown Verified 11/08/23 19:01
MOST ANTI SEIZURE MEDS Allergy Unknown Uncoded 11/08/23 19:01
Home Medications
Aspir-81 81 mg PO DAILY Blood Clot Prevention/Tx 11/08/23
Fioricet 1 tab PO BID hEADACHES 11/08/23
Flexeril 5 mg PO HS Muscle Spasms 11/08/23
Keflex 500 mg PO TID Infection 11/08/23
Klonopin 0.5 mg PO TID Mental Health/Anxiety 11/08/23
Nayzilam 5 mg intranasal ONCE PRN seizure 11/08/23
Nurtec ODT 75 mg PO ONCE PRN migraine 11/08/23
Vyvanse 50 mg PO DAILY Neurological Condition 11/08/23
Zofran ODT 8 mg PO Q8H PRN nausea 11/08/23
atorvastatin 10 mg PO DAILY High Cholesterol 11/08/23
eszopiclone 3 mg tablet (Lunesta) 3 mg PO HS Sleep 11/08/23
propranolol 160 mg PO DAILY Neurological Condition 11/08/23
albuterol sulfate 90 mcg/actuation aerosol inhaler 2 puff inhalation R Q4HPRN PRN SOB, chest tightness #2 grams 11/09/23
ferrous sulfate 325 mg (65 mg iron) tablet (FeroSul) 325 mg PO DAILY #30 tabs 11/09/23
Review of Systems
-
Constitutional: Reports No Symptoms
EENT: Reports No Symptoms
Respiratory: Reports Trouble Breathing
Cardiac: Reports Palpitations and Other (tachycardia)
Abdomen/GI: Reports No Symptoms
: Reports No Symptoms
Musculoskeletal: Reports No Symptoms
Skin: Reports No Symptoms
Neurological: Reports No Symptoms
Endocrine: Reports No Symptoms
Hematologic/Lymphatic: Reports No Symptoms
Psych: Reports No Symptoms
Physical Exam
Vital Signs
Vital Signs
Temp Pulse Resp BP Pulse Ox
97.7 F 57 15 115/66 99
11/13/23 22:15 11/14/23 00:30 11/14/23 00:30 11/14/23 00:11 11/14/23 00:30
Physical Exam
General: Well Developed, Well Nourished, No Apparent Distress and Comfortable
HEENT: NormoCephalic, Moist mucous membranes and Atraumatic
Respiratory: Clear
Cardiac: S1/S2 and Bradycardia
GI: Soft, Non Tender, Non Distended and Normal Bowel Sounds
Rectal: Deferred by Provider
Genito-urinary: Deferred by me
Musculoskeletal: No Clubbing, No Cyanosis and No Edema
Skin: Warm
Neuro: AO x 3
Hematologic/Lymphatic: No Lymphadenopathy
Psych: Calm
Laboratory Results
-
11/13/23 22:30
11/13/23 22:30
Laboratory Results
Total Bilirubin 0.3 mg/dl (0.2-1.3) 11/13/23 22:30
AST 31 U/L (14-36) 11/13/23 22:30
ALT 32 U/L (0-35) 11/13/23 22:30
Alkaline Phosphatase 39 U/L (38-126) 11/13/23 22:30
Troponin I < 0.012 ng/ml 11/13/23 22:30
Data Reviewed
-
Diagnostic Radiology: Image Personally Visualized and interpreted
CT Scan: Report Reviewed by me
Medical Tests (Nuc Med, Echo, EKG etc): Image Personally Visualized and interpreted
Lab Data: Labs Reviewed by me
Old Records: Reviewed
Impression/Plan
-
IMPRESSION:
Patient is a 48-year-old female with multiple medical comorbidities including meningioma, seizure d/o, HLD, anxiety, ADHD, migraines who was seen for urinary symptoms and chest discomfort with tachycardia and chest tightening on previous admission 3
days ago with pending cardiac workup for which patient left prior to completion. She returns to the emergency department with episodes of tachycardia to as high as 170 with associated chest tightness. She also reports episodes of bradycardia to
the 40s. ECG shows sinus bradycardia at [address] or T wave changes. The previous left bundle is now not present.
PLAN:
1. Torsten/Tachy -patient with apparent history of paroxysmal SVT for which she had been placed on propranolol and diltiazem. She appears to have baseline bradycardia and has worsening bradycardia on those current medications which were reduced on
last discharge. However she reports that with the bradycardia she now also has episodes of tachycardia to as high as 170. ECG today shows a bradycardia. Troponin is negative. She is otherwise hemodynamically stable. Question of mitral and
tricuspid BASKET TURNER with murmur per cardiology
- admit to telemetry
- echo in am
- will continue current dose of propranolol 160 am and hold the diltiazem 120 hs per prior cardiology recommendations
- plan for possible sestamibi testing in am
- no acute ischemia but pending w/u. Continue asa 81 and atorvastatin
- cardiology consult
2. Anxiety
-Continue Klonopin 0.5 mg 3 times daily
3. Migraine history no current migraine
Takes as needed Nurtec ODT 75 mg once or Fioricet 1 tab p.o. twice daily
4. Muscle spasms
-Continue Flexeril 5 mg at bedtime
5. Insomnia
-Continue Lunesta 3 mg at bedtime
6. History of seizures
-Patient reports is allergic to all seizure medications
Has rescue Nayzilam 5 mg intranasal as needed seizures
7. Vape nicotine use
-Vapes multiple times during the day
-Cessation advised
DVT ppx - lovenox sq
Full code
--- NOTE | 2023-11-14 03:25 | PTCARENOTE ---
Pt received from ED at 0310. Pt AAOX3, cooperative, and able to walk into room with stand by assistance. Pt states she gets lightheaded along with chest pressure and pain at times and uses a rolling walker at home sometimes (at least once a day) due
to PMH of dystonia. Pt receptive to room and call [facility]. Pt educated on importance of call [facility] usage and pt replays understanding. Pt bed in lowest position and call monaco within reach. Will continue with current plan of care.
--- NOTE | 2023-11-14 08:25 | CON.CAR ---
Addendum entered and electronically signed by Shyam Payne MD 11/14/23 15:48:
I saw and examined the patient.
The Stand Up Comedian's note was reviewed and I agree with the note.
Comment:
GEN: No distress, awake, Ox3
HEENT: supple, anicteric, mmm
LUNGS: CTA, no wheezes/rales
CV: Reg, S1/S2, 1/6 syst LSB, no gallop
ABD: soft, BS+, NT/ND
EXT: No edema
NEURO: Gross non-focal
SKIN: No rash
Plan:
She has a past medical history of anxiety/ADHD, migraines, meningioma, seizure disorder, tachycardia and left bundle branch block who was recently in the [place] emergency room for chest pain, palpitations, and fatigue. At that point she was
asked to follow-up as an outpatient for an echocardiogram and nuclear stress test with an outpatient monitor. Her propranolol at that point was reduced to 160 mg in the a.m. and 60 mg in the p.m.
Echocardiogram today was performed which revealed EF of 55 to 60% with mild mitral valve disease.
Lexiscan nuclear stress test reveals no significant ischemia or scar.
She continues have episodes of tachycardia with bradycardia. I wonder whether she has inappropriate sinus tachycardia or even a POTS syndrome.
From a cardiac standpoint she is stable for discharge. Will continue propranolol 160 mg in a.m. and 60 mg in the p.m. She could use an extra propranolol 60 mg as needed.
She will follow-up with her sketch maker in [place]. She is currently wearing a monitor for him.
Original Note:
Consultation
Consultation Request
Date/Time Consultation Requested: 11/14/2023 at 0648
Date/Time Consultation Performed: 11/14/23 at 0830
Requesting Provider: Dr. Hoyos
Performing Provider: EMMA Espino for Dr Caldwell
Reason for Consultation: tachy-albert syndrome
Medical History
-
Chief Complaint: Chest discomfort
History of Present Illness:
48-year-old woman, ADHD/anxiety/hypertension and migraines, meningioma, seizure disorder, chest tightness, tachycardia, bradycardia, new diagnosis left bundle branch block who presented to the ED 11/14/2023 with variable heart rates in the home
setting, as low as 48 bpm and as high as 170 bpm. When her HR is low and high she experiences chest tightness. She had been seen in the [facility] ED on 11/09/2023 for similar symptoms. She was found to have a left bundle branch block and
was seen by Dr. Wilson, who recommended echocardiogram, nuclear stress test, and outpatient helicopter technician. Patient preferred to get test done as an outpatient and was discharged from the ED with plan to get the testing done in the outpatient
setting. Her propranolol dose was reduced to once a day at 160 mg in the morning and 60 mg in the evening if heart rate was above 60 bpm. She was continued on diltiazem nightly. She requested to switch her cardiac care to [place] and
arrangements for testing was being made through [facility] She was subsequently seen earlier this week at her previous sketch maker,Dr Saxena at [facility] and a holter monitor was placed. Her nighttime Diltiazem was dosed with parameters
to hold if HR <60 bpm. She tells me she held the med a couple times.
Last night she noted continued variable heart rates with associated chest tightness when heart rate was in the 40s and also when it was elevated in the 160s and 170s and presented to [facility]. She feels lightheaded when her HR is low in the 40s-50s.
She's had no syncope, diaphoresis, shortness of breath, PND, orthopnea, edema.
Initial EKG showed sinus bradycardia with nonspecific ST-T wave abnormality. She did not have a left bundle branch block on EKG. In review of her telemetry, she is having intermittent left bundle branch block. Heart rates have been in the 50s to
60 bpm.
Troponin negative x 1
She has been told that she has a problem with her mitral valve prolapse and a problem with her tricuspid valve. She has no known history of OK, CAD, heart failure., CVA, DM. She refers to her arrhythmia as tachycardia and bradycardia and tells me
she has never been told that she has A-fib, a flutter, SVT, VT, heart block. She says her heart rate has been as high as 280 bpm in the past. She does not recall being told she had a left bundle branch block in the past.
She has been struggling with the recent UTIs and currently is getting treated for UTI with ongoing dysuria. She says she has 'brain damage' as a result of her neurosurgical procedures. She has not had intervention on her left meningioma. It is
unclear when this was last imaged. She had been exercising (weight training), had not been exercising over the last 10 weeks or so and recently resumed. However she does not feel current symptoms are musculoskeletal. She has GERD but does not
feel her symptoms relate to GERD.
Past Medical History
Past Medical History: GERD, Hypercholesterolemia, Seizures, Valvular Disease (Mitral valve prolapse), Psychiatric (Anxiety/depression/ADHD/insomnia) and Other (Migraine headaches, antiphospholipid syndrome, left frontal meningioma)
Past Surgical History: Other (Vascular decompression for trigeminal neuralgia)
Social History
Tobacco: Vaping
Alcohol: None
Drug: None
Personal: Partner (She has adult children)
Living: Alone
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
Family History
Family History: Reviewed & Not Pertinent
Allergies / Home Medications
Allergy/AdvReac Type Severity Reaction Status Date / Time
ciprofloxacin [From Cipro] Allergy Unknown Verified 11/08/23 19:01
phenytoin [From Dilantin] Allergy Unknown Verified 11/08/23 19:01
MOST ANTI SEIZURE MEDS Allergy Unknown Uncoded 11/08/23 19:01
�Medication �Instructions �Recorded �Confirmed �Type
Aspir-81 81 mg PO DAILY Blood Clot 11/08/23 11/08/23 History
Prevention/Tx
Fioricet 1 tab PO BID hEADACHES 11/08/23 11/08/23 History
Flexeril 5 mg PO HS Muscle Spasms 11/08/23 11/08/23 History
Keflex 500 mg PO TID Infection 11/08/23 11/08/23 History
Klonopin 0.5 mg PO TID Mental Health/Anxiety 11/08/23 11/08/23 History
Nayzilam 5 mg intranasal ONCE PRN seizure 11/08/23 11/08/23 History
Nurtec ODT 75 mg PO ONCE PRN migraine 11/08/23 11/08/23 History
Vyvanse 50 mg PO DAILY Neurological 11/08/23 11/08/23 History
Condition
Zofran ODT 8 mg PO Q8H PRN nausea 11/08/23 11/08/23 History
atorvastatin 10 mg PO DAILY High Cholesterol 11/08/23 11/08/23 History
eszopiclone 3 mg tablet (Lunesta) 3 mg PO HS Sleep 11/08/23 11/08/23 History
propranolol 160 mg PO DAILY Neurological 11/08/23 11/08/23 History
Condition
albuterol sulfate 90 mcg/actuation 2 puff inhalation R Q4HPRN PRN 11/09/23 Rx
aerosol inhaler SOB, chest tightness #2 grams
ferrous sulfate 325 mg (65 mg 325 mg PO DAILY #30 tabs 11/09/23 Rx
iron) tablet (FeroSul)
Review of Systems
-
History Source: Patient
All other systems: Negative unless noted
Physical Exam
Vital Signs
Temp Pulse Resp BP Pulse Ox
97.8 F 58 16 124/63 99
11/14/23 03:09 11/14/23 03:24 11/14/23 03:24 11/14/23 03:09 11/14/23 03:24
Lab Results
11/13/23 22:30
11/13/23 22:30
Troponin I < 0.012 ng/ml 11/13/23 22:30
GEN: No distress, awake, Ox3
HEENT: supple, anicteric, mmm
LUNGS: CTA, no wheezes/rales
CV: Reg, S1/S2, 1/6 soft systolic murmur LLSB
ABD: soft, BS+, NT/ND
EXT: No edema
NEURO: Gross non-focal
SKIN: No rash
Impression / Plan
-
Impression:
tachycardia
bradycardia
Chest pain, suspect noncardiac
Left bundle branch block, intermittant, duration unknown
History of mitral valve prolapse
Antiphospholipid antibody
Anxiety/depression/ADHD/insomnia
Migraines
History of seizures
History of meningioma
History of trigeminal neuralgia
Hyperlipidemia
Recent abdominoplasty
Recurrent UTI
Vaping
Previous cardiovasular testing:
EKG 11/09/23: NSR w/ LBBB HR 63 bpm
EKG 11/13/23: SB, nonspec ST-T wave abnl
Plan:
-She re-presents with concerns of both bradycardia and tachycardia, with associated chest tightness. She has never been diagnosed with a specific arrhythmia, other than being found to have a left bundle branch block on EKG during ER evaluation for
similar symptoms on 11/09/2023. She has been on both propranolol and diltiazem for heart rate control in the outpatient setting. She is on telemetry, so far showing sinus rhythm, sinus bradycardia with no arrhythmias noted.
-Chest tightness is likely noncardiac given negative troponins. It is unclear whether her left bundle branch block is new or old. LBBB is intermittant and not present on current EKG from 11/13/23. She has a history of mitral valve prolapse.
-check echocardiogram
-check Lexiscan nuclear stress test- pt has been NPO and no caffeine in past 24 hrs
-Will try to obtain records from previous sketch maker.
-Continue to hold diltiazem given bradycardia but can continue on propranolol LA 160 mg daily.
-Continue baby aspirin
-Continue atorvastatin
Data Reviewed
-
EKG: Tracing Personally Visualized and interpreted
Labs: Labs Reviewed by me
[2023-11-14] MEDS: LEXISCAN 0.4 MG IV (11:25)
[2023-11-14] MEDS: AMINOPHYLLINE 75 MG IV (11:34)
--- NOTE | 2023-11-14 11:59 | CM ---
Patient off of the floor to testing. CM will return to complete assessment.
--- NOTE | 2023-11-14 13:14 | W.PN.HOSP.TC ---
Today's Communication/Plan
-
Follow cardiac nuclear stress test
Monitor for arrhythmias
Continue treatment plan
Assessment / Plan
Assessment / Plan
Impression
A 48-year-old female with past medical history of supraventricular tachycardias, currently having fluctuating tachycardia-bradycardia episodes.
Past medical history is also positive for migraine anxiety insomnia ADHD hyperlipidemia's antiphospholipid syndrome and brain meningioma in the left frontal side.
Assessment
Tachycardia bradycardia syndrome
LBBB
Anxiety/Insomnia
Meningioma
ADHD
Plan
Tachycardia bradycardia syndrome
No arrhythmias noted on telemetry
Troponin negative
Echocardiography
Nuclear stress test
Monitor cardiac rhythm
Monitor heart rate
Adjust medications
Pacemaker??
Left bundle branch block
Present on EKG done on 11/08, not visible in the EKG done on 11/13
Troponin negative
Follow nuclear stress test reporting
Continue aspirin and statin
Anxiety/Insomnia
Could trigger tachycardias
Continue zolpidem 10 mg at bedtime
Meningioma
Did not undergo any treatment
ADHD
vyvnase, amphetamine that could cause dilated cardiomyopathy triggering tachycardias
Consider discontinuation
DVT prophylaxis Lovenox
Full code
Anticipated Discharge: 24 - 48 hours
Subjective/Interval History
-
Date of Service: November 14, 2023
Complains of episodic lightheadedness dizziness chest tightness and palpitations. She has a fluctuating heart rate from as low as 48 to as high as 170. She feels the symptoms when her heart rate drops.Currently she is able to communicate and feels
well
Objective Data
-
Vital Signs:
Vital Signs
Temp Pulse Resp BP Pulse Ox
97.7 F 88 16 126/79 99
11/14/23 07:00 11/14/23 07:00 11/14/23 07:00 11/14/23 07:00 11/14/23 07:00
Review of Systems
-
All other systems: Reviewed and negative
Physical Exam
-
General: Comfortable and Conversant
HEENT: Normocephalic
Respiratory: Clear to Auscultation
Cardiac: S1/S2 and Tachycardic
GI: Soft, Nontender and Normal Bowel Sounds
Genito-urinary: No Costovertebral Tender
Musculoskeletal: No Clubbing, No Cyanosis and No Edema
Skin: Warm and Dry
Neuro: Awake, Alert and Oriented
Hematologic / Lymphatic: No Lymphadenopathy
Psych: Calm
--- NOTE | 2023-11-14 13:31 | CM ---
Patient seen at bedside. Patient with curtains drawn and indicated that she felt more comfortable with drapes drawn. Patient states that she lives with her boyfriend in a 3 story home. Patient PCP is Dr. Aguilar and she has an appointment to see her
next week. Patient completed OBS form and signed form placed on chart. Patient stated that she is having problems with bills and agreed to accept information on resources. Patient uses [facility] in [place]. CM will continue to follow for
discharge planning needs.
Plan; home with no needs vs home with VN
[2023-11-14] MEDS: ASPIR LOW (ENTERIC COATED) 81 MG PO (13:33)
--- NOTE | 2023-11-14 14:41 | W.PN.UPDATE ---
Update Note
Progress Note Update
Patient down in cards department getting stress test and echocardiogram
will change patient to inpatient level with need of further cardiac testing and ongoing symptomatic tachycardia/bradycardia issues
[2023-11-14] MEDS: LOVENOX 40 MG SC (17:48)
--- NOTE | 2023-11-14 20:34 | W.PN.UPDATE ---
Update Note
Progress Note Update
RN notified patient wants to be discharged. Seen patient, Patient is AAOx3, stated [facility] [employer] has approved her to be discharged. Advise patient to stay to get proper discharge with prescriptions and plans. Patient refused and will accept to leave
Against Medical advise. AMA read and verbalized understanding. AMA form signed and in the chart.
--- NOTE | 2023-11-16 16:25 | W.DCSUMMARY ---
Discharge Summary
Discharge Data
Date of Admission: 11/14/23
Date of Discharge: 11/16/23
-
Pending Results: No
Hospital Course
Discharging Physician : Dr Bob Lofton
Disposition : Left AMA to home
Primary care physician : Dr Kitty Aguilar
Principal Discharge diagnosis :
Symptomatic tachycardia/bradycardia
Chronic Discharge diagnosis :
Left bundle branch block
Anxiety/insomnia
History of meningioma
Attention deficit hyperactivity disorder
Hyperlipidemia
Hospital Course :
Patient is a 48-year-old female with past medical history as above came to ER for having chest tightness and tachycardia with episodes of bradycardia as well. Patient had workup for tachycardia in the past and has been negative. Patient has been
planned to get an outpatient stress test with cardiology office. Patient noticed to have significant tachycardia with a heart rate in 170s came to ER for further evaluation. In ER patient was actually again bradycardic with heart rate in 50s.
Cardiology was involved in care and patient underwent stress test which was negative. Patient echocardiogram which did not show any acute abnormality either. Cardiology recommended for patient to maintain on propranolol 160 mg in the morning and
60 mg in the evening with as needed dose of 60 mg propranolol as needed. Patient was planned to be monitored overnight on telemetry although patient left AMA on 11/14/2023 in the evening
Important imaging findings :
None
Procedure findings :
None
Discharge Plan
-
Patient Disposition: Against Medical Advice
Referrals:
Ktity Aguilar MD [Family Provider] -
Prescriptions:
New
propranolol 60 mg capsule,extended release 24 hr
60 mg PO HS 30 Days Qty: 30 11RF
propranolol 20 mg tablet
20 mg PO BID PRN (Reason: take as needed for palpitations) 30 Days Qty: 60 3RF
Continued
propranolol
160 mg PO DAILY
Rx Instructions:
takes Er 160 mg with additional 60 mg in am
No Action
Aspir-81
81 mg PO DAILY
eszopiclone [Lunesta] 3 mg Tablet
3 mg PO HS
Fioricet
1 tab PO BID
Patient Comments:
fiorcet 50mg/325mg/40mg
Flexeril
5 mg PO HS
Klonopin
0.5 mg PO TID
Nayzilam
5 mg intranasal ONCE PRN (Reason: seizure )
Nurtec ODT
75 mg PO ONCE PRN (Reason: migraine)
Vyvanse
50 mg PO DAILY
Zofran ODT
8 mg PO Q8H PRN (Reason: nausea )
atorvastatin
10 mg PO DAILY
Keflex
500 mg PO TID
Rx Instructions:
being treated for ecoli uti since august . Has 2.5 days left of this medication
ferrous sulfate [FeroSul] 325 mg (65 mg iron) Tablet
325 mg PO DAILY Qty: 30 0RF
albuterol sulfate 90 mcg/actuation Hfa Aerosol Inhaler
2 puff inhalation R Q4HPRN PRN (Reason: SOB, chest tightness) Qty: 2 0RF
Discharge Date and Time
Discharge Date/Time: 11/14/23 20:36
Print Language: FRENCH
== END 2023-11-14 20:36 | disposition left against medical advice (07) | DRG 309 ==
LOC: 4 WEST ACU 14:08
PROVIDERS: Student in an Organized Health Care Education/Training Program; ADMITTING PHYSICIAN Internal Medicine; ATTENDING PHYSICIAN Hospitalist; EMERGENCY PHYSICIAN Emergency Medicine; FAMILY PHYSICIAN Family Medicine; OTHER PHYSICIAN Internal Medicine Cardiovascular Disease
PROC: 3E033HZ Introduction of Radioactive Substance into Peripheral Vein, Percutaneous Approach (ICD-10-PCS; 2023-11-14)
PROC: 4A02XM4 Measurement of Cardiac Total Activity, External Approach (ICD-10-PCS; 2023-11-14)
DX: I49.5 Sick sinus syndrome (principal); D68.61 Antiphospholipid syndrome; R07.89 Other chest pain; I44.7 Left bundle-branch block, unspecified; G40.909 Epilepsy, unspecified, not intractable, without status epilepticus; D64.9 Anemia, unspecified; E86.0 Dehydration; R73.9 Hyperglycemia, unspecified; D72.829 Elevated white blood cell count, unspecified; F32.A Depression, unspecified; F41.9 Anxiety disorder, unspecified; F90.9 Attention-deficit hyperactivity disorder, unspecified type; G43.909 Migraine, unspecified, not intractable, without status migrainosus; D32.0 Benign neoplasm of cerebral meninges; E78.00 Pure hypercholesterolemia, unspecified; G50.0 Trigeminal neuralgia; G47.00 Insomnia, unspecified; M62.838 Other muscle spasm; F17.290 Nicotine dependence, other tobacco product, uncomplicated; I10 Essential (primary) hypertension; K21.9 Gastro-esophageal reflux disease without esophagitis; I34.1 Nonrheumatic mitral (valve) prolapse; Z86.011 Personal history of benign neoplasm of the brain; Z88.1 Allergy status to other antibiotic agents; Z88.8 Allergy status to other drugs, medicaments and biological substances; Z79.82 Long term (current) use of aspirin; Z87.440 Personal history of urinary (tract) infections
CPT/HCPCS: 78452; 80053; 84484; 84703; 85025; 93005; 93017; 93306; 99285; A9500; J2785

== ENCOUNTER 2023-12-14 14:53 | Emergency (ER) | payer MEDICARE, BC, SELFPAY ==
[2023-12-14] VITALS (12 sets, daily range): BP systolic 131–186; BP diastolic 62–99; PULSE 62–67; BMI 23.0
[2023-12-14 15:34] LABS: Hematocrit 40.1 % (37.0-47.0); Hemoglobin 12.8 g/dL (12.0-16.0); Mean Corp Hgb Conc. 31.9 g/dL (33.0-37.0); Mean Corpuscular Hgb 23.8 pg (27.0-31.0); Mean Corpuscular Volume 74.7 fL (81.0-99.0); Platelet Count 583 10^3/uL (130-400); Red Blood Cell Count 5.37 10^6/uL (4.20-5.40); Red Cell Dist. Width 23.5 % (11.5-14.5); White Blood Cell Count 7.3 10^3/uL (4.8-10.8)
[2023-12-14 15:53] LABS: ALT (SGPT) 52 U/L (0-35); AST (SGOT) 29 U/L (14-36); Albumin 4.8 g/dl (3.5-5.0); Alkaline Phosphatase 37 U/L (38-126); Blood Urea Nitrogen 20 mg/dl (7-17); Calcium 10.6 mg/dl (8.4-10.2); Carbon Dioxide 28 mmol/L (22-30); Chloride 99 mmol/L (98-107); Estimated Creatinine Clearance 62 ml/min; Glucose 99 mg/dl (70-99); Potassium 4.5 mmol/L (3.5-5.1); Sodium 138 mmol/L (135-145); Total Bilirubin 0.3 mg/dl (0.2-1.3); Total Protein 7.6 g/dl (6.3-8.2); eGFR > 60.00
[2023-12-14 15:54] LABS: Troponin I < 0.012 ng/ml
[2023-12-14 15:56] LABS: % Basophils 0.4 % (0-2); % Eosinophils 0.4 % (0-6); % Immature Granulocytes 0.3 % (0-0.5); % Lymphocytes 22.1 % (20.5-51.1); % Monocytes 9.4 % (1.7-9.3); % Neutrophils 67.4 % (42.2-75.2); Absolute Lymphocytes 1.6 10^3/uL (1.2-3.4); Absolute Monocytes 0.7 10^3/uL (0.1-0.6); Nucleated Red Blood Cells % 0 %
[2023-12-14 15:58] LABS: Anisocytosis 2+; Hypochromasia 2+; Macrocytosis 1+; Normal RBC Morphology No
[2023-12-14 15:59] LABS: Ovalocytes 1+; Stomatocytes 1+
--- NOTE | 2023-12-14 16:02 | ED.GENMED ---
History of Present Illness
<Vicky Martell PA-C - Last Filed: 12/16/23 22:11>
General
Chief Complaint: Chest Pain
Source: patient
Exam Limitations: none
Time Seen by Provider: 12/14/23 15:06
Nursing documentation reviewed up to this point in time: agreed with
History of Present Illness
History of Present Illness:
48 y/o F with suzanne pittmanin that started today around 1230 pm while at the gym
she was exercising, lifting weights
she cannot tell me how much weigh tshe was lifting
she felt lghtheaded and drank some water and had a little more pain and then it intensified
she feels stlil iglhtheaded and 'not right>'
pt has had a few evalautions recently for her chest pain
she even had a stress test 1 mo ago after having chronic tachycarida and developing more recent tachy-albert syndrome
the stress test was neg (there was artifact but no findings)
pt has f/u with cards next week
she has not had fever, cough, cold sypmtoms, leg sewlling, passing out
she has h/o antiphospholipid syndrome
no AC
Past History
<QUEENIE Todd Last Filed: 12/16/23 22:11>
Past History
ED Past Medical History: Seizures
ED Past Surgical History: Brain
Social History
Tobacco: Non-smoker
Alcohol: None
Drug: None
Living: with family
Review of Systems
<QUEENIE Todd Last Filed: 12/16/23 22:11>
Review of Systems
Allergies reviewed?: Yes
All Other Systems: Not applicable
Phy Exam
<QUEENIE Todd Last Filed: 12/16/23 22:11>
Physical Exam
Physical Exam:
GENERAL: Alert , in no apparent distress, extremely flat affect, does not blink
EYE: pupils equal and reactive
NECK: Supple
ENT: o/p clr, mmm.
CARDIAC: Regular rate and rhythm .
LUNGS: Clear breath sounds bilaterally, no acute respiratory distress, no wheezes/rales/rhonchi
chest wall: mild tenderness no rash, nontender
ABDOMEN: Soft, without focal tenderness, no r/g, no cvat, normal bowel sounds
NEUROLOGICAL: Alert and oriented, no focal neuro deficits
SKIN: Warm and dry, skin intact.
MUSCULOSKELETAL: No edema, well perfused. neg teto's sign
PSYCH: flat, stares, monotone
Scores
<Vicky Martell PA-C - Last Filed: 12/16/23 22:11>
Heart Score for Chest Pain Patients
STEMI patient?: No
History: Slightly or Non-Suspicious
ECG: Nonspecific Repolarization
Age: >45 - <65 years
Risk Factors: 1 or 2 Risk Factors
Troponin: </= Normal Limit
Heart Score for Chest Pain Patients: 3
Heart Score Risk: 2.5% MACE over next 6 weeks
Course
<Vicky Martell PA-C - Last Filed: 12/16/23 22:11>
Orders/Labs/Results
Orders:
Orders
12/14/23 14:56
EKG [Electrocardiogram (*1)] Urgent
Reason for Study: Chest Pain
EKG- Treatment ONCE
12/14/23 15:23
Complete Blood Count/With Diff Urgent
Comprehensive Metabolic Panel Urgent
Troponin I Urgent
12/14/23 16:01
Orthostatic VS- Treatment ONCE
Aspirin Chewable [Low Strength Aspirin] 324 mg PO NOW STA
12/14/23 16:12
COVID-19 Antigen Urgent
Source: Nasal Swab
12/14/23 16:39
EKG- Treatment ONCE
12/14/23 16:40
CR Chest - 2 Views Urgent
Comment:
Reason For Exam: chest pain
12/14/23 17:22
0.9% Sodium Chloride 1000 ml [Nss] 1,000 ml IV BOLUS
Colchicine 0.6 mg PO NOW STA
12/14/23 18:28
Troponin I Urgent
12/14/23 18:54
CT Chest Pe Study Urgent
Comment:
Reason For Exam: chest pain, h/o antiphos lipid syndrome
12/14/23 18:58
Morphine Sulfate 2 mg IV NOW STA
12/14/23 19:00
Electrocardiogram (*1) Urgent
Reason for Study: Chest Pain
12/14/23 19:58
Morphine Sulfate 4 mg .ROUTE .STK-MED ONE
12/14/23 20:23
Morphine Sulfate 2 mg IV NOW STA
12/14/23 20:24
Morphine Sulfate 2 mg .ROUTE .STK-MED ONE
Abnormal Lab Results
12/14/23
15:23
MCV 74.7 L fL
(81.0-99.0)
MCH 23.8 L pg
(27.0-31.0)
MCHC 31.9 L g/dL
(33.0-37.0)
RDW 23.5 H %
(11.5-14.5)
Plt Count 583 H 10^3/uL
(130-400)
Absolute Monos (auto) 0.7 H 10^3/uL
(0.1-0.6)
Monocytes % 9.4 H %
(1.7-9.3)
BUN 20 H mg/dl
(7-17)
Calcium 10.6 H mg/dl
(8.4-10.2)
ALT 52 H U/L
(0-35)
Alkaline Phosphatase 37 L U/L
(38-126)
12/14/23 15:23
12/14/23 15:23
Vital Signs
Initial and Last Documented VS:
Initial Vital Signs
Temp Pulse Resp BP Pulse Ox
97.9 F 62 16 186/99 100
12/14/23 14:56 12/14/23 14:56 12/14/23 14:56 12/14/23 14:56 12/14/23 14:56
Last Documented Vital Signs
Temp Pulse Resp BP Pulse Ox
97.9 F 78 12 140/75 98
12/14/23 14:56 12/14/23 21:15 12/14/23 21:15 12/14/23 21:00 12/14/23 21:15
<Travis Daigle, DO - Last Filed: 12/14/23 17:26>
Orders/Labs/Results
Orders:
Orders
12/14/23 14:56
EKG [Electrocardiogram (*1)] Urgent
Reason for Study: Chest Pain
EKG- Treatment ONCE
12/14/23 15:23
Complete Blood Count/With Diff Urgent
Comprehensive Metabolic Panel Urgent
Troponin I Urgent
12/14/23 16:01
Orthostatic VS- Treatment ONCE
Aspirin Chewable [Low Strength Aspirin] 324 mg PO NOW STA
12/14/23 16:12
COVID-19 Antigen Urgent
Source: Nasal Swab
12/14/23 16:39
EKG- Treatment ONCE
12/14/23 16:40
CR Chest - 2 Views Urgent
Comment:
Reason For Exam: chest pain
12/14/23 17:22
0.9% Sodium Chloride 1000 ml [Nss] 1,000 ml IV BOLUS
Colchicine 0.6 mg PO NOW STA
12/14/23 18:28
Troponin I Urgent
12/14/23 18:54
CT Chest Pe Study Urgent
Comment:
Reason For Exam: chest pain, h/o antiphos lipid syndrome
12/14/23 18:58
Morphine Sulfate 2 mg IV NOW STA
12/14/23 19:00
Electrocardiogram (*1) Urgent
Reason for Study: Chest Pain
12/14/23 19:58
Morphine Sulfate 4 mg .ROUTE .STK-MED ONE
12/14/23 20:23
Morphine Sulfate 2 mg IV NOW STA
12/14/23 20:24
Morphine Sulfate 2 mg .ROUTE .STK-MED ONE
Abnormal Lab Results
12/14/23
15:23
MCV 74.7 L fL
(81.0-99.0)
MCH 23.8 L pg
(27.0-31.0)
MCHC 31.9 L g/dL
(33.0-37.0)
RDW 23.5 H %
(11.5-14.5)
Plt Count 583 H 10^3/uL
(130-400)
Absolute Monos (auto) 0.7 H 10^3/uL
(0.1-0.6)
Monocytes % 9.4 H %
(1.7-9.3)
BUN 20 H mg/dl
(7-17)
Calcium 10.6 H mg/dl
(8.4-10.2)
ALT 52 H U/L
(0-35)
Alkaline Phosphatase 37 L U/L
(38-126)
12/14/23 15:23
12/14/23 15:23
Vital Signs
Initial and Last Documented VS:
Initial Vital Signs
Temp Pulse Resp BP Pulse Ox
97.9 F 62 16 186/99 100
12/14/23 14:56 12/14/23 14:56 12/14/23 14:56 12/14/23 14:56 12/14/23 14:56
Last Documented Vital Signs
Temp Pulse Resp BP Pulse Ox
97.9 F 78 12 140/75 98
12/14/23 14:56 12/14/23 21:15 12/14/23 21:15 12/14/23 21:00 12/14/23 21:15
<Vikcy Martell PA-C - Last Filed: 12/16/23 22:11>
MDM/Problems Addressed
Differential Diagnosis Includes:
chest wall pain, pericarditis, anxiety, gerd, PE, pleuristy,
MDM/Problems Addressed:
48 y/o F
tachybrady syndrome
recent neg stress test
has had episodes of chest pain and today's started 1230
feels a little better leaning forward
no fever/cough/syncope, sob
has antiphospholipid syndorme
on exam pt has very flat affect; she had h/o brain tumor which probably contributes
she is difficult to read
says she is in a lot of pain but has a very flat affect and seems very comfortable
her ekg is LBBB
she apparently has had documented lbbb before but not visible in the computer; it is documented on preivous cards w/u tony tshe had LBBB
pt's tro pwas neg
seen by ed attending who felt that her sypmtosm could be mild pericarditis and recommended cholchiine
howevshira rsclara was still complaining and 2nd trop neg
thus with her possible coag disorder, i did CT PE study which did not show PE
spoke with dr. gutiérrez information systems director for cards who agreed, ok to d/c home
d/c home with colchicine.
<Vicky Martell PA-C - Last Filed: 12/16/23 22:11>
*Critical Care Note
Total Time (30-74mins, 75-104mins- exclusive of procedures): Not Applicable
ED Attending Note
<iVcky Martell PA-C - Last Filed: 12/16/23 22:11>
-
Portions of this chart may have been created with voice recognition software.� Occasional wrong word or��sound alike� substitutions may have occurred due to the inherent limitations of voice recognition software.
<Travis Daigle DO - Last Filed: 12/14/23 17:26>
ED Attending Note
Patient seen and examined by attending physician: Yes
I performed the substantive portion of visit, reviewed & personally made and approve the management plan that is documented in note by myself or KAROLYN.: Yes
ED Attending Note:
I have seen and evaluated the patient with a [id number] encounter. I have spoken to the advance practicer provider and involved in the medical history, the physical exam, medical decision making.
Evaluation and management service: agree unless noted differently below.
Results interpretation: agree unless noted differently below.
Focused HPI: 48-year-old female presenting with chest discomfort and dizziness. 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 She is already seen cardiology after recent admission. She has cardiology
follow-up next week.
Physical exam: Sitting bed comfortably. Heart regular rate and rhythm
Medical Decision Making: Patient acknowledges that she took a 'Umer load' of preworkout supplement earlier today. This is likely the source. However, her chest discomfort is worse when she lays flat but it is improved from when I sit her forward.
There is the possibility of pericarditis. Will start colchicine until her outpatient cardiology follow-up. Will discharge if troponin negative x2
Discharge Plan
Departure
Patient Disposition: Home (Routine Discharge)
Date of Disposition: 12/14/23
Time of Disposition: 20:44
Patient with high blood pressure during this ER visit?: No
Condition: Fair
Discharge Problem:
Chest pain
Instructions: Chest Pain That Is Not Caused by the Heart (DC)
Prescriptions:
New
colchicine 0.6 mg tablet
0.6 mg PO DAILY Qty: 7 0RF
No Action
Aspir-81
81 mg PO DAILY
eszopiclone [Lunesta] 3 mg Tablet
3 mg PO HS
Fioricet
1 tab PO BID
Patient Comments:
fiorcet 50mg/325mg/40mg
Flexeril
5 mg PO HS
Klonopin
0.5 mg PO TID
Nayzilam
5 mg intranasal ONCE PRN (Reason: seizure )
Nurtec ODT
75 mg PO ONCE PRN (Reason: migraine)
Vyvanse
50 mg PO DAILY
Zofran ODT
8 mg PO Q8H PRN (Reason: nausea )
atorvastatin
10 mg PO DAILY
propranolol
160 mg PO DAILY
Rx Instructions:
takes Er 160 mg with additional 60 mg in am
Keflex
500 mg PO TID
Rx Instructions:
being treated for ecoli uti since august . Has 2.5 days left of this medication
ferrous sulfate [FeroSul] 325 mg (65 mg iron) Tablet
325 mg PO DAILY Qty: 30 0RF
albuterol sulfate 90 mcg/actuation Hfa Aerosol Inhaler
2 puff inhalation R Q4HPRN PRN (Reason: SOB, chest tightness) Qty: 2 0RF
Referrals:
Kitty Aguilar MD [Family Provider] -
Activity Restrictions/Additional Instructions:
YOUR PAIN MAY BE FROM AN INFLAMMATION AROUND YOUR HEART - THIS IS SELF RESOLVING BUT WE TREAT IT WITH COLCHICINE TWICE A DAY FOR 5 DAYS
your cat scan was negative for blood clot
i spoke with the parent aide, there were no additional recommendations for now
follow up with TIFFANY zimmerman as planned.
CONTINUE YOUR OTHER MEDICATIONS
IN THE MEANTIME, YOU ALSO SHOULD FOLLOW UP WITH YOUR SUPPLY CHAIN SPECIALIST
RETURN FOR: WORSENING PAIN, TROUBLE BREATHING, PASSING OUT OR ANY CONCERNS.
Interventions
Interventions:
*Risk Screen - Suicide Last Done: 12/14/23 14:56
*General Assessment Last Done: 12/14/23 14:56
*Neglect/Abuse Screening Last Done: 12/14/23 14:56
ED- Fall Risk Assessment Last Done: 12/14/23 16:31
*ED COVID-19 Vaccine History Last Done: 12/14/23 22:51
*Nursing Disposition Last Done: 12/14/23 22:51
ED- Cardiac Assessment Last Done: 12/14/23 16:31
Discharge Date and Time
Discharge Date/Time: 12/14/23 21:45
Print Language: UGANDAN
[2023-12-14] MEDS: LOW STRENGTH ASPIRIN 324 MG PO (16:09)
[2023-12-14 16:33] LABS: COVID-19 Antigen Negative (Negative)
[2023-12-14] MEDS: COLCHICINE 0.6 MG PO (17:46)
[2023-12-14] MEDS: NSS 1000 IV (17:47)
[2023-12-14] MEDS: MORPHINE SULFATE 2 MG IV ×2 (19:01→20:24)
[2023-12-14 19:18] LABS: Troponin I < 0.012 ng/ml
== END 2023-12-14 21:45 | disposition home or self-care (01) ==
LOC: EMR 14:53
PROVIDERS: Physician Assistant; EMERGENCY PHYSICIAN Student in an Organized Health Care Education/Training Program; FAMILY PHYSICIAN Family Medicine
DX: R07.89 Other chest pain (principal); Z11.52 Encounter for screening for COVID-19
CPT/HCPCS: 99285; 96374; 96361; 96376; 71046; 71275; 80053; 84484; 85025; 87811; 93005; Q9967